=== PATIENT | female | born 1965 | race African-American/Black ===

== ENCOUNTER 2017-03-17 15:11 | Emergency (ER) | payer BC ==
[~2017-03-17] VITALS: Ht 165.1 cm; Wt 78.8 kg
[~2017-03-17 15:11] MED LIST: AMLODIPINE BESYL5 MG PO; FLONASE16 GM NS; GABAPENTIN400 MG PO; OXYCODONE-APAP1 EACH PO; PATADAY2.5 ML OP; PEPCID20 MG PO; PERCOCET 5/31 TABLET PO; PREMARIN0.625 MG PO; ZOLPIDEM TART6.25 MG PO; ZYRTEC10 MG PO
[2017-03-17 15:56] LABS: HEMATOCRIT 38.5 % (36.0-46.0); MCH 26.5 PG (29.0-34.0); MCHC 34.8 G/DL (30.0-36.0); MCV 76.2 FL (83-99); MEAN PLAT.VOLUME 9.8 uM^3 (9.5-12.4); PLATELET COUNT 222 K/uL (156-360); RBC DIS.WIDTH-CV 13.9 % (11.8-14.6); RBC DIS.WIDTH-SD 38.3 % (39-53); RED BLOOD COUNT 5.05 M/uL (3.80-5.20); WHITE BLOOD COUNT 4.9 K/uL (4.1-10.2)
[2017-03-17 16:18] LABS: CHLORIDE 105 mEq/L (99-109); POTASSIUM 4.4 mEq/L (3.7-5.4); SODIUM 139 mEq/L (136-147)
[2017-03-17 16:21] LABS: ANION GAP 9 MEQ/L (2-14)
[2017-03-17 16:22] LABS: GLUCOSE 95 mg/dL (70-99)
[2017-03-17 16:23] LABS: GFR ESTIMATE (CALCULATED) > 59 mL/min/
[2017-03-17 16:24] LABS: UREA NITROGEN (BUN) 11 mg/dL (9-23)
[2017-03-17 16:30] LABS: TROP-I INTERPRETATION NEGATIVE; TROPONIN-I < 0.01 ng/mL (0.0-0.30)
[2017-03-17 16:33] LABS: QUANTITATIVE HCG < 4.0 MIU/ML
[2017-03-17] MEDS ORDERED: ALPRAZOLAM0.5 MG PO (16:43)
[2017-03-17] MEDS ORDERED: AMBIEN10 MG PO (16:44)
[2017-03-17] MEDS ORDERED: ANTIVERT25 MG PO (18:26)
[2017-03-17 18:47] VITALS: BP 125/90
== END 2017-03-17 18:48 | disposition home or self-care (01) ==
LOC: EME 15:11
PROVIDERS: Emergency Medicine
DX: R42 Dizziness and giddiness (principal); M25.551 Pain in right hip; F17.200 Nicotine dependence, unspecified, uncomplicated; Z88.6 Allergy status to analgesic agent
CPT/HCPCS: 70450; 71020; 73502; 80048; 84439; 84443; 84484; 84702; 85027; 93005; 99281; 99285; J7030

== ENCOUNTER 2017-04-09 13:34 | Emergency (ER) | payer BC ==
[~2017-04-09] VITALS: Ht 165.1 cm; Wt 81.4 kg
[~2017-04-09 13:34] MED LIST changes: +ALPRAZOLAM0.5 MG PO; +AMBIEN10 MG PO; +ANTIVERT25 MG PO
[2017-04-09 14:42] LABS: EOSINOPHIL (%) 1.4 % (0-5); EOSINOPHIL COUNT 0.1 K/uL (0-0.3); HEMATOCRIT 37.6 % (36.0-46.0); IMMATURE GRANULOCYTE (%) 0.2 % (0.0-0.7); INSTRUMENT ABS NEUTROPHIL CT 3.1 K/uL; MCH 26.8 PG (29.0-34.0); MCHC 34.8 G/DL (30.0-36.0); MCV 76.9 FL (83-99); MEAN PLAT.VOLUME 10.3 uM^3 (9.5-12.4); MONOCYTE (%) 8.2 % (3-12); MONOCYTE COUNT 0.5 K/uL (0-0.8); NEUTROPHIL (%) 54.1 % (45-76); NEUTROPHIL COUNT 3.1 K/uL (1.8-6.4); PLATELET COUNT 209 K/uL (156-360); RBC DIS.WIDTH-CV 14.2 % (11.8-14.6); RBC DIS.WIDTH-SD 39.2 % (39-53); RED BLOOD COUNT 4.89 M/uL (3.80-5.20); WHITE BLOOD COUNT 5.6 K/uL (4.1-10.2)
[2017-04-09 14:52] LABS: CHLORIDE 106 mEq/L (99-109); POTASSIUM 4.2 mEq/L (3.7-5.4); SODIUM 140 mEq/L (136-147)
[2017-04-09 14:54] LABS: GLUCOSE 90 mg/dL (70-99)
[2017-04-09 14:55] LABS: ANION GAP 7 MEQ/L (2-14)
[2017-04-09 14:57] LABS: GFR ESTIMATE (CALCULATED) > 59 mL/min/
[2017-04-09 14:58] LABS: UREA NITROGEN (BUN) 13 mg/dL (9-23)
[2017-04-09 15:04] LABS: TROP-I INTERPRETATION NEGATIVE; TROPONIN-I < 0.01 ng/mL (0.0-0.30)
[2017-04-09 15:14] LABS: BILIRUBIN NEGATIVE; BLOOD NEGATIVE; COLOR YELLOW ((YELLOW)); GLUCOSE (STRIP) NEGATIVE; KETONES NEGATIVE; LEUKOCYTES NEGATIVE; NITRITE NEGATIVE; PROTEIN (STRIP) NEGATIVE; SPECIFIC GRAVITY 1.013 (1.000-1.030); UROBILINOGEN 0.2 MG/DL (0.2-1.0)
[2017-04-09 15:21] LABS: ADD MIUA? NO; UCUL ADDED? NO
[2017-04-09] MEDS ORDERED: MECLIZINE HCL25 MG PO (15:58)
[2017-04-09] MEDS ORDERED: SUBOXONE 8 MG-1 EAC2 SL (15:58)
[2017-04-09] MEDS ORDERED: METOCLOPRAMIDE10 MG PO (15:59)
[2017-04-09] MEDS ORDERED: CLONIDINE HCL0.1 MG PO (15:59)
[2017-04-09] MEDS ORDERED: PAXIL10 MG PO (15:59)
[2017-04-09] MEDS ORDERED: MEDROL DOSEPAK4 MG PO (16:25)
[2017-04-09 16:46] VITALS: BP 139/95
== END 2017-04-09 17:10 | disposition home or self-care (01) ==
LOC: EME 13:34
PROVIDERS: Emergency Medicine
DX: R55 Syncope and collapse (principal); R42 Dizziness and giddiness; F17.200 Nicotine dependence, unspecified, uncomplicated
CPT/HCPCS: 70450; 80048; 81003; 84484; 85025; 93005; 99281; 99285; J7040

== ENCOUNTER 2017-04-17 14:01 | Observation (INO) | payer BC ==
[~2017-04-17] VITALS: Ht 165.1 cm; Wt 78.0 kg
[~2017-04-17 14:01] MED LIST changes: +CLONIDINE HCL0.1 MG PO; +MECLIZINE HCL25 MG PO; +MEDROL DOSEPAK4 MG PO; +METOCLOPRAMIDE10 MG PO; +PAXIL10 MG PO; +SUBOXONE 8 MG-1 EAC2 SL
[2017-04-17 15:18] LABS: EOSINOPHIL (%) 3.3 % (0-5); EOSINOPHIL COUNT 0.2 K/uL (0-0.3); HEMATOCRIT 36.3 % (36.0-46.0); IMMATURE GRANULOCYTE (%) 0.2 % (0.0-0.7); INSTRUMENT ABS NEUTROPHIL CT 2.2 K/uL; LYMPHOCYTE COUNT 2.3 K/uL (1.0-2.8); MCH 26.4 PG (29.0-34.0); MCHC 34.4 G/DL (30.0-36.0); MCV 76.7 FL (83-99); MONOCYTE (%) 8.1 % (3-12); MONOCYTE COUNT 0.4 K/uL (0-0.8); NEUTROPHIL (%) 43.2 % (45-76); NEUTROPHIL COUNT 2.2 K/uL (1.8-6.4); PLATELET COUNT 193 K/uL (156-360); RBC DIS.WIDTH-CV 14.3 % (11.8-14.6); RBC DIS.WIDTH-SD 39.5 % (39-53); RED BLOOD COUNT 4.73 M/uL (3.80-5.20); WHITE BLOOD COUNT 5.2 K/uL (4.1-10.2)
[2017-04-17 15:36] LABS: CHLORIDE 105 mEq/L (99-109); POTASSIUM 3.9 mEq/L (3.7-5.4); SODIUM 138 mEq/L (136-147)
[2017-04-17 15:38] LABS: GLUCOSE 85 mg/dL (70-99)
[2017-04-17 15:40] LABS: ANION GAP 5 MEQ/L (2-14); TOTAL BILIRUBIN 0.3 mg/dL (0.0-1.0)
[2017-04-17 15:42] LABS: ALKALINE PHOSPHATASE 64 IU/L (3-129); GFR ESTIMATE (CALCULATED) > 59 mL/min/; TROP-I INTERPRETATION NEGATIVE; TROPONIN-I < 0.01 ng/mL (0.0-0.30)
[2017-04-17 15:43] LABS: UREA NITROGEN (BUN) 12 mg/dL (9-23)
[2017-04-17 16:09] LABS: ADD MIUA? NO; BILIRUBIN NEGATIVE; BLOOD NEGATIVE; COLOR YELLOW ((YELLOW)); GLUCOSE (STRIP) NEGATIVE; KETONES NEGATIVE; LEUKOCYTES NEGATIVE; NITRITE NEGATIVE; PROTEIN (STRIP) NEGATIVE; SPECIFIC GRAVITY 1.009 (1.000-1.030); UCUL ADDED? NO; UROBILINOGEN 0.2 MG/DL (0.2-1.0)
[2017-04-17 16:24] LABS: AMPHETAMINE NEGATIVE (500 ng/mL); BARBITURATES NEGATIVE (200 ng/mL); BENZODIAZEPINES PRESUMPTIVE POSITIVE (150 ng/mL); COCAINE NEGATIVE (150 ng/mL); METHADONE NEGATIVE (200 ng/mL); METHAMPHETAMINE NEGATIVE (500 ng/mL); OPIATES (MORPHINE) NEGATIVE (100 ng/mL); OXYCODONE NEGATIVE (100 ng/mL); PHENCYCLIDINE NEGATIVE (25 ng/mL); PROPOXYPHENE NEGATIVE (300 ng/mL); THC CANNABINOIDS NEGATIVE (50 ng/mL); TRICYCLIC ANTIDEPRESSANTS NEGATIVE (300 ng/mL)
[2017-04-17 16:25] LABS: ADD MEDTOX COMMENT Y; INTERNAL CONTROLS VALID? YES
[2017-04-17] MEDS ORDERED: ALPRAZOLAM1 MG PO (16:27)
[2017-04-17] MEDS ORDERED: AMBIEN10 MG PO (16:27)
[2017-04-17] MEDS ORDERED: MEDROL DOSEPAK4 MG PO (16:27)
[2017-04-17] MEDS ORDERED: SUBOXONE 8 MG-1 EAC2 SL ×2 (16:28)
[2017-04-17] MEDS ORDERED: METOCLOPRAMIDE10 MG PO (16:29)
[2017-04-17] MEDS ORDERED: CLONIDINE HCL0.1 MG PO (16:29)
[2017-04-17] MEDS ORDERED: PREMARIN VAGI42.5 GM TP (16:29)
[2017-04-17] MEDS ORDERED: PAROXETINE HCL10 MG PO (16:29)
[2017-04-17 16:32] LABS: D-DIMER ELISA 0.44 mg/L FEU (< 0.57)
[2017-04-17] MEDS ORDERED: ALPRAZOLAM0.5 MG PO (16:46)
[2017-04-17 16:54] LABS: BENZODIAZEPINES, URINE SCREEN POSITIVE (200 ng/mL)
[2017-04-17 18:17] VITALS: BP 130/85
[2017-04-17 20:00] VITALS: BP 125/81; BP 142/89; BP 144/92
[2017-04-18] VITALS (9 sets, daily range): BP systolic 113–139; BP diastolic 67–91
[2017-04-18 06:13] LABS: EOSINOPHIL (%) 3.5 % (0-5); EOSINOPHIL COUNT 0.2 K/uL (0-0.3); HEMATOCRIT 33.2 % (36.0-46.0); IMMATURE GRANULOCYTE (%) 0.4 % (0.0-0.7); INSTRUMENT ABS NEUTROPHIL CT 1.2 K/uL; MCH 26.4 PG (29.0-34.0); MCV 77.6 FL (83-99); MEAN PLAT.VOLUME 10.5 uM^3 (9.5-12.4); MONOCYTE (%) 8.1 % (3-12); MONOCYTE COUNT 0.4 K/uL (0-0.8); NEUTROPHIL (%) 25.2 % (45-76); NEUTROPHIL COUNT 1.2 K/uL (1.8-6.4); PLATELET COUNT 185 K/uL (156-360); RBC DIS.WIDTH-CV 14.5 % (11.8-14.6); RBC DIS.WIDTH-SD 40.6 % (39-53); RED BLOOD COUNT 4.28 M/uL (3.80-5.20); WHITE BLOOD COUNT 4.8 K/uL (4.1-10.2)
[2017-04-18 06:37] LABS: ANION GAP 5 MEQ/L (2-14); CHLORIDE 107 MEQ/L (99-109); GFR ESTIMATE (CALCULATED) > 59 mL/min/; GLUCOSE 89 mg/dL (70-99); POTASSIUM 4.1 MEQ/L (3.7-5.4); SAMPLE HEMOLYSIS CHECK 0; SAMPLE ICTERIC CHECK 0; SAMPLE LIPEMIA CHECK 0; SODIUM 139 MEQ/L (136-147); UREA NITROGEN (BUN) 15 mg/dL (9-23)
[2017-04-19] VITALS (7 sets, daily range): BP systolic 124–144; BP diastolic 78–98
[2017-04-19 06:39] LABS: EOSINOPHIL (%) 1.7 % (0-5); EOSINOPHIL COUNT 0.1 K/uL (0-0.3); HEMATOCRIT 33.8 % (36.0-46.0); IMMATURE GRANULOCYTE (%) 0.4 % (0.0-0.7); INSTRUMENT ABS NEUTROPHIL CT 2.2 K/uL; LYMPHOCYTE COUNT 2.3 K/uL (1.0-2.8); MCH 27.2 PG (29.0-34.0); MCHC 35.2 G/DL (30.0-36.0); MCV 77.2 FL (83-99); MEAN PLAT.VOLUME 10.2 uM^3 (9.5-12.4); MONOCYTE COUNT 0.5 K/uL (0-0.8); NEUTROPHIL (%) 42.9 % (45-76); NEUTROPHIL COUNT 2.2 K/uL (1.8-6.4); PLATELET COUNT 190 K/uL (156-360); RBC DIS.WIDTH-CV 14.4 % (11.8-14.6); RBC DIS.WIDTH-SD 39.8 % (39-53); RED BLOOD COUNT 4.38 M/uL (3.80-5.20); WHITE BLOOD COUNT 5.2 K/uL (4.1-10.2)
[2017-04-19 06:58] LABS: ANION GAP 7 MEQ/L (2-14); CHLORIDE 103 MEQ/L (99-109); GFR ESTIMATE (CALCULATED) > 59 mL/min/; GLUCOSE 93 mg/dL (70-99); POTASSIUM 3.8 MEQ/L (3.7-5.4); SAMPLE HEMOLYSIS CHECK 0; SAMPLE ICTERIC CHECK 0; SAMPLE LIPEMIA CHECK 0; SODIUM 138 MEQ/L (136-147); UREA NITROGEN (BUN) 8 mg/dL (9-23)
== END 2017-04-19 15:00 | disposition home or self-care (01) ==
LOC: EME 14:01 → EDOF 17:32 → 5WEST 18:11
PROVIDERS: Emergency Medicine; Family Medicine
DX: R55 Syncope and collapse (principal); F41.9 Anxiety disorder, unspecified; I10 Essential (primary) hypertension; G89.29 Other chronic pain; G47.00 Insomnia, unspecified; I48.91 Unspecified atrial fibrillation; F32.9 Major depressive disorder, single episode, unspecified
CPT/HCPCS: 71020; 80048; 80053; 81003; 82140; 84484; 84999; 85025; 85379; 93005; G0378; J1650; J7030

== ENCOUNTER 2017-05-20 23:53 | Emergency (ER) | payer BC ==
[~2017-05-20] VITALS: Ht 165.1 cm; Wt 83.6 kg
[~2017-05-20 23:53] MED LIST changes: +ALPRAZOLAM1 MG PO; +PAROXETINE HCL10 MG PO; +PREMARIN VAGI42.5 GM TP
[2017-05-21 01:01] LABS: ADD MIUA? YES; BILIRUBIN NEGATIVE; BLOOD NEGATIVE; COLOR YELLOW ((YELLOW)); GLUCOSE (STRIP) NEGATIVE; KETONES NEGATIVE; LEUKOCYTES TRACE; NITRITE NEGATIVE; PROTEIN (STRIP) NEGATIVE; SPECIFIC GRAVITY 1.012 (1.000-1.030); UROBILINOGEN 0.2 MG/DL (0.2-1.0)
[2017-05-21 01:09] LABS: AMPHETAMINE NEGATIVE (500 ng/mL); BARBITURATES NEGATIVE (200 ng/mL); BENZODIAZEPINES PRESUMPTIVE POSITIVE (150 ng/mL); COCAINE NEGATIVE (150 ng/mL); METHADONE NEGATIVE (200 ng/mL); METHAMPHETAMINE NEGATIVE (500 ng/mL); OPIATES (MORPHINE) NEGATIVE (100 ng/mL); OXYCODONE NEGATIVE (100 ng/mL); PHENCYCLIDINE NEGATIVE (25 ng/mL); PROPOXYPHENE NEGATIVE (300 ng/mL); THC CANNABINOIDS NEGATIVE (50 ng/mL); TRICYCLIC ANTIDEPRESSANTS NEGATIVE (300 ng/mL)
[2017-05-21 01:10] LABS: ADD MEDTOX COMMENT Y; BACTERIA NONE SEEN /HPF; EPITHELIAL CELLS 1+ /HPF; HYALINE CASTS 0-5 /LPF; INTERNAL CONTROLS VALID? YES; MUCUS 2+ /LPF; RED BLOOD CELLS 0-5 /HPF (0-5); UCUL ADDED? NO; WHITE BLOOD CELLS 0-5 /HPF (0-5)
[2017-05-21 01:22] LABS: MCH 26.3 PG (29.0-34.0); MCHC 34.4 G/DL (30.0-36.0); MCV 76.4 FL (83-99); MEAN PLAT.VOLUME 10.4 uM^3 (9.5-12.4); PLATELET COUNT 202 K/uL (156-360); RBC DIS.WIDTH-CV 13.7 % (11.8-14.6); RED BLOOD COUNT 4.71 M/uL (3.80-5.20); WHITE BLOOD COUNT 4.9 K/uL (4.1-10.2)
[2017-05-21 01:34] LABS: CHLORIDE 101 mEq/L (99-109); SODIUM 137 mEq/L (136-147)
[2017-05-21 01:37] LABS: ANION GAP 8 MEQ/L (2-14); GLUCOSE 95 mg/dL (70-99)
[2017-05-21 01:38] LABS: TOTAL BILIRUBIN 0.2 mg/dL (0.0-1.0)
[2017-05-21 01:39] LABS: SERUM ETHYL ALCOHOL < 10 mg/dL
[2017-05-21 01:40] LABS: ALKALINE PHOSPHATASE 68 IU/L (3-129); GFR ESTIMATE (CALCULATED) > 59 mL/min/
[2017-05-21 01:41] LABS: UREA NITROGEN (BUN) 12 mg/dL (9-23)
[2017-05-21 01:43] LABS: LIPASE 33 U/L (1.0-51.0)
[2017-05-21 01:44] LABS: CREATINE KINASE 64 IU/L (1-294); TOTAL CK 64 IU/L (1-294)
[2017-05-21 01:51] LABS: CK-MB < 0.4 ng/mL (0.0-4.9)
[2017-05-21 02:09] LABS: BENZODIAZEPINES, URINE SCREEN POSITIVE (200 ng/mL)
[2017-05-21 03:13] VITALS: BP 127/90
== END 2017-05-21 04:18 | disposition home or self-care (01) ==
LOC: EME 23:53
PROVIDERS: Emergency Medicine
DX: G40.909 Epilepsy, unspecified, not intractable, without status epilepticus (principal); R51 Headache; R41.3 Other amnesia; M79.89 Other specified soft tissue disorders; I10 Essential (primary) hypertension; F17.200 Nicotine dependence, unspecified, uncomplicated
CPT/HCPCS: 80053; 81003; 82550; 82553; 83690; 84999; 85027; 99281; 99285; G0480; J0780; J1200; J7030

== ENCOUNTER 2017-12-17 14:30 | Inpatient (IN) | payer OTHER ==
[~2017-12-17] VITALS: Ht 165.1 cm; Wt 92.2 kg
[~2017-12-17 14:30] MED LIST changes: -PAROXETINE HCL10 MG PO; +PAXIL40 MG PO; +SUBOXONE 12 MG1 EACH SL
[2017-12-17 15:00] LABS: HEMATOCRIT 37.8 % (36.0-46.0); HEMOGLOBIN 13.1 G/DL (11.9-15.5); MCH 27.4 PG (29.0-34.0); MCHC 34.7 G/DL (30.0-36.0); MCV 79.1 FL (83-99); PLATELET COUNT 212 K/uL (156-360); RBC DIS.WIDTH-SD 40.5 % (39-53); RED BLOOD COUNT 4.78 M/uL (3.80-5.20); WHITE BLOOD COUNT 7.7 K/uL (4.1-10.2)
[2017-12-17 15:10] LABS: ALBUMIN 4.2 g/dL (3.2-4.8); CHLORIDE 103 mEq/L (99-109); POTASSIUM 3.6 mEq/L (3.7-5.4); SODIUM 141 mEq/L (136-147)
[2017-12-17 15:13] LABS: GLUCOSE 97 mg/dL (70-99); TOTAL PROTEIN 7.5 g/dL (6.4-8.3)
[2017-12-17 15:15] LABS: TOTAL BILIRUBIN 0.3 mg/dL (0.0-1.0)
[2017-12-17 15:16] LABS: ALKALINE PHOSPHATASE 91 IU/L (3-129); CREATININE 1.2 mg/dL (0.6-1.3); GFR ESTIMATE (CALCULATED) > 59 mL/min/; SERUM ETHYL ALCOHOL < 10 mg/dL
[2017-12-17 15:18] LABS: AST (GOT) 21 IU/L (2-34); UREA NITROGEN (BUN) 8 mg/dL (9-23)
[2017-12-17 15:19] LABS: ALT (GPT) 17 IU/L (3-49)
[2017-12-17 17:27] LABS: APPEARANCE CLEAR ((CLEAR)); BILIRUBIN NEGATIVE; BLOOD NEGATIVE; COLOR STRAW ((YELLOW)); GLUCOSE (STRIP) NEGATIVE; KETONES NEGATIVE; LEUKOCYTES NEGATIVE; NITRITE NEGATIVE; PROTEIN (STRIP) NEGATIVE; SPECIFIC GRAVITY 1.008 (1.000-1.030); UROBILINOGEN 0.2 MG/DL (0.2-1.0)
[2017-12-17 17:35] LABS: BASE EXCESS 2.5 mEq/L (-3 to +3); BICARBONATE 31.2 mEq/L (22-26); CARBOXY HGB 5.6 % (0-5); PCO2 68 mm Hg (35-45); PO2 71 mm Hg (80-100)
[2017-12-17 17:36] LABS: COMMENTS - BLOOD GASES A+C+; DEVICE NC; O2 FLOW 2.5 L/MIN; SITE LR; pH 7.27 (7.35-7.45)
[2017-12-17 17:48] LABS: AMPHETAMINE NEGATIVE (500 ng/mL); BARBITURATES NEGATIVE (200 ng/mL); BENZODIAZEPINES PRESUMPTIVE POSITIVE (150 ng/mL); BUPRENORPHINE PRESUMPTIVE POSITIVE (10 ng/mL); COCAINE NEGATIVE (150 ng/mL); METHADONE NEGATIVE (200 ng/mL); METHAMPHETAMINE NEGATIVE (500 ng/mL); OPIATES (MORPHINE) NEGATIVE (100 ng/mL); OXYCODONE NEGATIVE (100 ng/mL); PHENCYCLIDINE NEGATIVE (25 ng/mL); PROPOXYPHENE NEGATIVE (300 ng/mL); THC CANNABINOIDS NEGATIVE (50 ng/mL); TRICYCLIC ANTIDEPRESSANTS NEGATIVE (300 ng/mL)
[2017-12-17 18:17] LABS: BENZODIAZEPINES, URINE SCREEN POSITIVE (200 ng/mL)
[2017-12-17 19:44] LABS: BASE EXCESS 3.7 mEq/L (-3 to +3); BICARBONATE 31.1 mEq/L (22-26); COMMENTS - BLOOD GASES C+A+; DEVICE NC; O2 FLOW 2.5 L/MIN; PCO2 59 mm Hg (35-45); PO2 65 mm Hg (80-100); SITE LR; TOTAL RESP RATE 15 resp/min; pH 7.33 (7.35-7.45)
[2017-12-17] MEDS ORDERED: KEPPRA750 MG PO (20:43)
[2017-12-17] MEDS ORDERED: VALIUM5 MG PO (20:44)
[2017-12-17] MEDS ORDERED: NEURONTIN300 MG PO (20:45)
[2017-12-17] MEDS ORDERED: BENADRYL25 MG PO (20:45)
[2017-12-17 23:04] VITALS: BP 170/90
[2017-12-18] VITALS (7 sets, daily range): BP systolic 134–166; BP diastolic 73–84
[2017-12-18 06:49] LABS: HEMATOCRIT 35.8 % (36.0-46.0); HEMOGLOBIN 12.3 G/DL (11.9-15.5); MCH 27.2 PG (29.0-34.0); MCHC 34.4 G/DL (30.0-36.0); PLATELET COUNT 203 K/uL (156-360); RBC DIS.WIDTH-CV 14.2 % (11.8-14.6); RBC DIS.WIDTH-SD 40.7 % (39-53); RED BLOOD COUNT 4.53 M/uL (3.80-5.20); WHITE BLOOD COUNT 8.8 K/uL (4.1-10.2)
[2017-12-18 07:15] LABS: CHLORIDE 106 MEQ/L (99-109); GFR ESTIMATE (CALCULATED) > 59 mL/min/; GLUCOSE 123 mg/dL (70-99); SODIUM 143 MEQ/L (136-147); UREA NITROGEN (BUN) 8 mg/dL (9-23)
[2017-12-18 07:26] LABS: CREATININE 0.7 MG/DL (0.6-1.3)
[2017-12-19 03:56] VITALS: BP 138/84
[2017-12-19 06:07] LABS: BASOPHIL (%) 0.2 % (0-1); EOSINOPHIL (%) 2.2 % (0-5); EOSINOPHIL COUNT 0.1 K/uL (0-0.3); HEMATOCRIT 31.8 % (36.0-46.0); HEMOGLOBIN 10.9 G/DL (11.9-15.5); IMMATURE GRANULOCYTE (%) 0.3 % (0.0-0.7); LYMPHOCYTE (%) 31.2 % (15-42); MCHC 34.3 G/DL (30.0-36.0); MCV 78.7 FL (83-99); MONOCYTE (%) 8.4 % (3-12); MONOCYTE COUNT 0.6 K/uL (0-0.8); NEUTROPHIL (%) 57.7 % (45-76); NEUTROPHIL COUNT 3.8 K/uL (1.8-6.4); PLATELET COUNT 179 K/uL (156-360); RBC DIS.WIDTH-CV 13.9 % (11.8-14.6); RED BLOOD COUNT 4.04 M/uL (3.80-5.20); WHITE BLOOD COUNT 6.5 K/uL (4.1-10.2)
[2017-12-19 06:39] LABS: CHLORIDE 105 MEQ/L (99-109); CREATININE 0.6 MG/DL (0.6-1.3); GFR ESTIMATE (CALCULATED) > 59 mL/min/; GLUCOSE 100 mg/dL (70-99); POTASSIUM 3.9 MEQ/L (3.7-5.4); SODIUM 140 MEQ/L (136-147); UREA NITROGEN (BUN) 9 mg/dL (9-23)
[2017-12-19 07:10] VITALS: BP 141/83
[2017-12-19 11:30] VITALS: BP 157/101
[2017-12-19 15:52] VITALS: BP 142/82
[2017-12-19 20:05] VITALS: BP 137/84
[2017-12-19 23:48] VITALS: BP 137/84; BP 140/85
[2017-12-20 04:15] VITALS: BP 129/64
[2017-12-20 06:18] LABS: BASOPHIL (%) 0.2 % (0-1); EOSINOPHIL (%) 1.2 % (0-5); EOSINOPHIL COUNT 0.1 K/uL (0-0.3); HEMATOCRIT 30.4 % (36.0-46.0); HEMOGLOBIN 10.7 G/DL (11.9-15.5); IMMATURE GRANULOCYTE (%) 0.2 % (0.0-0.7); LYMPHOCYTE (%) 24.3 % (15-42); MCH 27.2 PG (29.0-34.0); MCHC 35.2 G/DL (30.0-36.0); MCV 77.2 FL (83-99); MONOCYTE (%) 9.4 % (3-12); MONOCYTE COUNT 0.8 K/uL (0-0.8); NEUTROPHIL (%) 64.7 % (45-76); NEUTROPHIL COUNT 5.2 K/uL (1.8-6.4); PLATELET COUNT 167 K/uL (156-360); RBC DIS.WIDTH-CV 13.6 % (11.8-14.6); RBC DIS.WIDTH-SD 38.5 % (39-53); RED BLOOD COUNT 3.94 M/uL (3.80-5.20)
[2017-12-20 06:42] LABS: CHLORIDE 100 MEQ/L (99-109); CREATININE 0.6 MG/DL (0.6-1.3); GFR ESTIMATE (CALCULATED) > 59 mL/min/; GLUCOSE 99 mg/dL (70-99); POTASSIUM 3.4 MEQ/L (3.7-5.4); SODIUM 138 MEQ/L (136-147); UREA NITROGEN (BUN) 11 mg/dL (9-23)
[2017-12-20 07:15] VITALS: BP 147/81
[2017-12-20 11:09] VITALS: BP 142/83
[2017-12-20 16:35] VITALS: BP 148/84
[2017-12-20 18:18] LABS: BICARBONATE 29.1 mEq/L (22-26); CARBOXY HGB 2.5 % (0-5); METHEMOGLOBIN 1.7 % (0-1.5); PO2 53 mm Hg (80-100)
[2017-12-20 18:19] LABS: COMMENTS - BLOOD GASES A+C+; DEVICE NC; O2 FLOW 5 L/MIN; PCO2 40 mm Hg (35-45); SITE RR; pH 7.47 (7.35-7.45)
[2017-12-20 19:56] VITALS: BP 135/85
[2017-12-21] VITALS (14 sets, daily range): BP systolic 128–159; BP diastolic 67–105
[2017-12-21 06:35] LABS: BASOPHIL (%) 0.1 % (0-1); EOSINOPHIL (%) 0.3 % (0-5); HEMATOCRIT 30.5 % (36.0-46.0); HEMOGLOBIN 10.7 G/DL (11.9-15.5); IMMATURE GRANULOCYTE (%) 0.4 % (0.0-0.7); LYMPHOCYTE (%) 10.3 % (15-42); LYMPHOCYTE COUNT 1.3 K/uL (1.0-2.8); MCH 26.8 PG (29.0-34.0); MCHC 35.1 G/DL (30.0-36.0); MCV 76.4 FL (83-99); MONOCYTE (%) 6.7 % (3-12); MONOCYTE COUNT 0.8 K/uL (0-0.8); NEUTROPHIL (%) 82.2 % (45-76); NEUTROPHIL COUNT 10.4 K/uL (1.8-6.4); PLATELET COUNT 178 K/uL (156-360); RBC DIS.WIDTH-CV 13.6 % (11.8-14.6); RED BLOOD COUNT 3.99 M/uL (3.80-5.20); WHITE BLOOD COUNT 12.6 K/uL (4.1-10.2)
[2017-12-21 06:51] LABS: CHLORIDE 101 MEQ/L (99-109); CREATININE 0.6 MG/DL (0.6-1.3); GFR ESTIMATE (CALCULATED) > 59 mL/min/; GLUCOSE 108 mg/dL (70-99); POTASSIUM 3.7 MEQ/L (3.7-5.4); SODIUM 137 MEQ/L (136-147); UREA NITROGEN (BUN) 10 mg/dL (9-23)
[2017-12-21 14:14] LABS: BASE EXCESS 7.6 mEq/L (-3 to +3); BICARBONATE 32.7 mEq/L (22-26); CARBOXY HGB 2.4 % (0-5); COMMENTS - BLOOD GASES A+C+; DEVICE HHFNC; FI02 100 %; MECHANICAL RATE 16 resp/min; METHEMOGLOBIN 1.6 % (0-1.5); O2 FLOW 40 L/MIN; PCO2 47 mm Hg (35-45); PO2 47 mm Hg (80-100); SITE RR; pH 7.45 (7.35-7.45)
[2017-12-21 16:55] LABS: BASE EXCESS 5.5 mEq/L (-3 to +3); BICARBONATE 31.1 mEq/L (22-26); CARBOXY HGB 1.9 % (0-5); COMMENTS - BLOOD GASES +C; CONTINUOUS POS AIRWAY PRESSURE 8 cm H2O; DEVICE NIV; FI02 100 %; METHEMOGLOBIN 1.6 % (0-1.5); PCO2 49 mm Hg (35-45); PO2 173 mm Hg (80-100); PRES. SUPPORT 10 CM/H2O; SITE RR +A; TOTAL RESP RATE 30 resp/min; pH 7.41 (7.35-7.45)
[2017-12-22] VITALS (21 sets, daily range): BP systolic 116–140; BP diastolic 70–89
[2017-12-22 06:05] LABS: CHLORIDE 101 MEQ/L (99-109); CREATININE 0.5 MG/DL (0.6-1.3); GFR ESTIMATE (CALCULATED) > 59 mL/min/; GLUCOSE 157 mg/dL (70-99); POTASSIUM 3.8 MEQ/L (3.7-5.4); SODIUM 139 MEQ/L (136-147); UREA NITROGEN (BUN) 17 mg/dL (9-23)
[2017-12-22 06:06] LABS: BASOPHIL (%) 0.1 % (0-1); EOSINOPHIL (%) 0 % (0-5); HEMATOCRIT 30.8 % (36.0-46.0); HEMOGLOBIN 10.5 G/DL (11.9-15.5); IMMATURE GRANULOCYTE (%) 0.5 % (0.0-0.7); LYMPHOCYTE (%) 5.2 % (15-42); LYMPHOCYTE COUNT 0.8 K/uL (1.0-2.8); MCH 26.4 PG (29.0-34.0); MCHC 34.1 G/DL (30.0-36.0); MCV 77.4 FL (83-99); MONOCYTE (%) 1.9 % (3-12); MONOCYTE COUNT 0.3 K/uL (0-0.8); NEUTROPHIL (%) 92.3 % (45-76); NEUTROPHIL COUNT 14.1 K/uL (1.8-6.4); PLATELET COUNT 195 K/uL (156-360); RBC DIS.WIDTH-CV 13.7 % (11.8-14.6); RBC DIS.WIDTH-SD 38.5 % (39-53); RED BLOOD COUNT 3.98 M/uL (3.80-5.20); WHITE BLOOD COUNT 15.3 K/uL (4.1-10.2)
[2017-12-23] VITALS (22 sets, daily range): BP systolic 125–165; BP diastolic 71–98
[2017-12-23 13:13] LABS: BASOPHIL (%) 0.1 % (0-1); EOSINOPHIL (%) 0 % (0-5); HEMATOCRIT 32.1 % (36.0-46.0); HEMOGLOBIN 11.2 G/DL (11.9-15.5); IMMATURE GRANULOCYTE (%) 0.6 % (0.0-0.7); LYMPHOCYTE (%) 4.2 % (15-42); LYMPHOCYTE COUNT 0.7 K/uL (1.0-2.8); MCH 27.1 PG (29.0-34.0); MCHC 34.9 G/DL (30.0-36.0); MCV 77.5 FL (83-99); MONOCYTE (%) 4.1 % (3-12); MONOCYTE COUNT 0.7 K/uL (0-0.8); NEUTROPHIL COUNT 15.5 K/uL (1.8-6.4); PLATELET COUNT 265 K/uL (156-360); RBC DIS.WIDTH-CV 13.9 % (11.8-14.6); RBC DIS.WIDTH-SD 39.3 % (39-53); RED BLOOD COUNT 4.14 M/uL (3.80-5.20); WHITE BLOOD COUNT 17.1 K/uL (4.1-10.2)
[2017-12-23 13:36] LABS: CHLORIDE 101 MEQ/L (99-109); CREATININE 0.6 MG/DL (0.6-1.3); GFR ESTIMATE (CALCULATED) > 59 mL/min/; GLUCOSE 133 mg/dL (70-99); MAGNESIUM 2.2 mg/dl (1.3-2.7); PHOSPHORUS 1.8 mg/dL (2.5-4.9); POTASSIUM 4.2 MEQ/L (3.7-5.4); SODIUM 143 MEQ/L (136-147); UREA NITROGEN (BUN) 19 mg/dL (9-23)
[2017-12-23 22:08] LABS: CARBOXY HGB 1.9 % (0-5); pH 7.43 (7.35-7.45)
[2017-12-23 22:09] LABS: BASE EXCESS 4.3 mEq/L (-3 to +3); BICARBONATE 29.2 mEq/L (22-26); COMMENTS - BLOOD GASES A+C+; DEVICE NCH; METHEMOGLOBIN 1.7 % (0-1.5); O2 FLOW 15 L/MIN; PCO2 44 mm Hg (35-45); PO2 54 mm Hg (80-100); SITE RR
[2017-12-24] VITALS (23 sets, daily range): BP systolic 129–172; BP diastolic 78–109
[2017-12-24 12:19] LABS: BASOPHIL (%) 0.2 % (0-1); EOSINOPHIL (%) 0.1 % (0-5); HEMATOCRIT 32.1 % (36.0-46.0); HEMOGLOBIN 11.4 G/DL (11.9-15.5); IMMATURE GRANULOCYTE (%) 1.3 % (0.0-0.7); LYMPHOCYTE (%) 4.3 % (15-42); LYMPHOCYTE COUNT 0.7 K/uL (1.0-2.8); MCH 27.5 PG (29.0-34.0); MCHC 35.5 G/DL (30.0-36.0); MCV 77.3 FL (83-99); MONOCYTE (%) 4.9 % (3-12); MONOCYTE COUNT 0.8 K/uL (0-0.8); NEUTROPHIL (%) 89.2 % (45-76); NEUTROPHIL COUNT 14.2 K/uL (1.8-6.4); NRBC (%) 0.1 /100 WBC (0-0); RBC DIS.WIDTH-CV 13.9 % (11.8-14.6); RBC DIS.WIDTH-SD 38.8 % (39-53); RED BLOOD COUNT 4.15 M/uL (3.80-5.20); WHITE BLOOD COUNT 15.9 K/uL (4.1-10.2)
[2017-12-24 12:42] LABS: CREATININE 0.6 MG/DL (0.6-1.3); GLUCOSE 131 mg/dL (70-99); UREA NITROGEN (BUN) 20 mg/dL (9-23)
[2017-12-24 12:43] LABS: CHLORIDE 105 MEQ/L (99-109); GFR ESTIMATE (CALCULATED) > 59 mL/min/; MAGNESIUM 2.2 mg/dl (1.3-2.7); POTASSIUM 4.2 MEQ/L (3.7-5.4); SODIUM 140 MEQ/L (136-147)
[2017-12-24 12:46] LABS: PLAT.SUFFICIENCY ADEQUATE; PLATELET COUNT 274 K/uL (156-360)
[2017-12-25] VITALS (19 sets, daily range): BP systolic 144–171; BP diastolic 84–107
[2017-12-25 05:44] LABS: BASOPHIL (%) 0.1 % (0-1); EOSINOPHIL (%) 0 % (0-5); HEMATOCRIT 31.1 % (36.0-46.0); HEMOGLOBIN 10.9 G/DL (11.9-15.5); IMMATURE GRANULOCYTE (%) 1.1 % (0.0-0.7); LYMPHOCYTE (%) 7.6 % (15-42); LYMPHOCYTE COUNT 0.9 K/uL (1.0-2.8); MCH 26.8 PG (29.0-34.0); MCV 76.4 FL (83-99); MONOCYTE (%) 4.7 % (3-12); MONOCYTE COUNT 0.6 K/uL (0-0.8); NEUTROPHIL (%) 86.5 % (45-76); NEUTROPHIL COUNT 10.6 K/uL (1.8-6.4); PLATELET COUNT 296 K/uL (156-360); RBC DIS.WIDTH-CV 13.6 % (11.8-14.6); RBC DIS.WIDTH-SD 37.8 % (39-53); RED BLOOD COUNT 4.07 M/uL (3.80-5.20); WHITE BLOOD COUNT 12.2 K/uL (4.1-10.2)
[2017-12-25 06:05] LABS: CHLORIDE 102 MEQ/L (99-109); CREATININE 0.6 MG/DL (0.6-1.3); GFR ESTIMATE (CALCULATED) > 59 mL/min/; GLUCOSE 135 mg/dL (70-99); MAGNESIUM 2.3 mg/dl (1.3-2.7); PHOSPHORUS 3.6 mg/dL (2.5-4.9); POTASSIUM 4.3 MEQ/L (3.7-5.4); SODIUM 139 MEQ/L (136-147); UREA NITROGEN (BUN) 20 mg/dL (9-23)
[2017-12-26] VITALS (7 sets, daily range): BP systolic 126–162; BP diastolic 60–89
[2017-12-27 05:39] LABS: BASOPHIL (%) 0.1 % (0-1); EOSINOPHIL (%) 0.7 % (0-5); EOSINOPHIL COUNT 0.1 K/uL (0-0.3); HEMATOCRIT 30.5 % (36.0-46.0); HEMOGLOBIN 10.6 G/DL (11.9-15.5); IMMATURE GRANULOCYTE (%) 2.3 % (0.0-0.7); LYMPHOCYTE (%) 16.9 % (15-42); LYMPHOCYTE COUNT 1.9 K/uL (1.0-2.8); MCH 26.6 PG (29.0-34.0); MCHC 34.8 G/DL (30.0-36.0); MCV 76.6 FL (83-99); MONOCYTE (%) 7.2 % (3-12); MONOCYTE COUNT 0.8 K/uL (0-0.8); NEUTROPHIL (%) 72.8 % (45-76); NEUTROPHIL COUNT 8.4 K/uL (1.8-6.4); PLATELET COUNT 354 K/uL (156-360); RBC DIS.WIDTH-CV 13.9 % (11.8-14.6); RBC DIS.WIDTH-SD 38.2 % (39-53); RED BLOOD COUNT 3.98 M/uL (3.80-5.20); WHITE BLOOD COUNT 11.5 K/uL (4.1-10.2)
[2017-12-27 06:10] LABS: CHLORIDE 104 MEQ/L (99-109); CREATININE 0.5 MG/DL (0.6-1.3); GFR ESTIMATE (CALCULATED) > 59 mL/min/; GLUCOSE 92 mg/dL (70-99); POTASSIUM 3.6 MEQ/L (3.7-5.4); SODIUM 139 MEQ/L (136-147); UREA NITROGEN (BUN) 21 mg/dL (9-23)
[2017-12-27 07:25] VITALS: BP 154/95
[2017-12-27 12:05] VITALS: BP 128/82
[2017-12-27 16:45] VITALS: BP 135/72
[2017-12-27 20:22] VITALS: BP 132/78
[2017-12-27 23:47] VITALS: BP 143/83
[2017-12-28] VITALS (7 sets, daily range): BP systolic 132–168; BP diastolic 72–94
[2017-12-28 05:31] LABS: BASOPHIL (%) 0.1 % (0-1); EOSINOPHIL (%) 0.6 % (0-5); EOSINOPHIL COUNT 0.1 K/uL (0-0.3); HEMATOCRIT 31.7 % (36.0-46.0); HEMOGLOBIN 10.9 G/DL (11.9-15.5); IMMATURE GRANULOCYTE (%) 2.5 % (0.0-0.7); LYMPHOCYTE (%) 8.2 % (15-42); LYMPHOCYTE COUNT 0.8 K/uL (1.0-2.8); MCH 26.5 PG (29.0-34.0); MCHC 34.4 G/DL (30.0-36.0); MCV 76.9 FL (83-99); MONOCYTE (%) 5.7 % (3-12); MONOCYTE COUNT 0.5 K/uL (0-0.8); NEUTROPHIL (%) 82.9 % (45-76); NEUTROPHIL COUNT 7.9 K/uL (1.8-6.4); PLATELET COUNT 374 K/uL (156-360); RBC DIS.WIDTH-CV 14.2 % (11.8-14.6); RBC DIS.WIDTH-SD 38.9 % (39-53); RED BLOOD COUNT 4.12 M/uL (3.80-5.20); WHITE BLOOD COUNT 9.5 K/uL (4.1-10.2)
[2017-12-28 05:57] LABS: CHLORIDE 102 MEQ/L (99-109); CREATININE 0.6 MG/DL (0.6-1.3); GFR ESTIMATE (CALCULATED) > 59 mL/min/; GLUCOSE 134 mg/dL (70-99); POTASSIUM 4.5 MEQ/L (3.7-5.4); SODIUM 136 MEQ/L (136-147); UREA NITROGEN (BUN) 15 mg/dL (9-23)
[2017-12-29 04:40] VITALS: BP 157/90
[2017-12-29 05:16] LABS: BASOPHIL (%) 0.1 % (0-1); EOSINOPHIL (%) 0.1 % (0-5); HEMATOCRIT 31.4 % (36.0-46.0); HEMOGLOBIN 10.8 G/DL (11.9-15.5); LYMPHOCYTE (%) 10.3 % (15-42); LYMPHOCYTE COUNT 1.2 K/uL (1.0-2.8); MCH 26.4 PG (29.0-34.0); MCHC 34.4 G/DL (30.0-36.0); MCV 76.8 FL (83-99); MONOCYTE (%) 8.2 % (3-12); MONOCYTE COUNT 0.9 K/uL (0-0.8); NEUTROPHIL (%) 78.3 % (45-76); NEUTROPHIL COUNT 8.7 K/uL (1.8-6.4); PLATELET COUNT 374 K/uL (156-360); RBC DIS.WIDTH-CV 14.2 % (11.8-14.6); RBC DIS.WIDTH-SD 38.7 % (39-53); RED BLOOD COUNT 4.09 M/uL (3.80-5.20); WHITE BLOOD COUNT 11.1 K/uL (4.1-10.2)
[2017-12-29 09:41] VITALS: BP 145/84
[2017-12-29 11:22] VITALS: BP 137/78
[2017-12-29] MEDS ORDERED: MUCINEX600 MG PO (13:16)
[2017-12-29] MEDS ORDERED: DOCUSATE SODIU100 MG PO (13:17)
[2017-12-29] MEDS ORDERED: SENNA LAX8.6 MG PO (13:17)
[2017-12-29] MEDS ORDERED: AUGMENTIN875 MG PO (13:21)
[2017-12-29] MEDS ORDERED: VENTOLIN HFA18 GM IH (13:21)
[2017-12-29] MEDS ORDERED: PREDNISONE10 MG PO (13:21)
== END 2017-12-29 15:50 | disposition home or self-care (01) | DRG 177 ==
LOC: EME 14:30 → EDOF 21:14 → 5EAST 21:14 → ENRESERV 21:25 → 5EAST 22:53 → ENRESERV 12-21 11:16 → 4EAST 12-21 13:27 → 4WEST 12-21 14:47 → ENRESERV 12-25 18:13 → 4EAST 12-25 19:29
PROVIDERS: Emergency Medicine; Family Medicine; Internal Medicine Pulmonary Disease; Obstetrics & Gynecology; Specialist
PROC: 5A09357 Assistance with Respiratory Ventilation, Less than 24 Consecutive Hours, Continuous Positive Airway Pressure (ICD-10-PCS; principal; 2017-12-21)
DX: J69.0 Pneumonitis due to inhalation of food and vomit (principal); J96.01 Acute respiratory failure with hypoxia; J44.9 Chronic obstructive pulmonary disease, unspecified; I10 Essential (primary) hypertension; I48.0 Paroxysmal atrial fibrillation; G40.409 Other generalized epilepsy and epileptic syndromes, not intractable, without status epilepticus; R41.82 Altered mental status, unspecified; T50.7X5A Adverse effect of analeptics and opioid receptor antagonists, initial encounter; T42.4X5A Adverse effect of benzodiazepines, initial encounter; J98.11 Atelectasis; F43.22 Adjustment disorder with anxiety; E07.9 Disorder of thyroid, unspecified; G89.29 Other chronic pain; M54.2 Cervicalgia; G47.00 Insomnia, unspecified; R42 Dizziness and giddiness; R73.9 Hyperglycemia, unspecified; R63.5 Abnormal weight gain; Z68.32 Body mass index [BMI] 32.0-32.9, adult; F32.9 Major depressive disorder, single episode, unspecified; F17.200 Nicotine dependence, unspecified, uncomplicated; Z71.6 Tobacco abuse counseling; Z79.891 Long term (current) use of opiate analgesic; Z79.899 Other long term (current) drug therapy; Z90.710 Acquired absence of both cervix and uterus; Z87.19 Personal history of other diseases of the digestive system; Z91.5 Personal history of self-harm; Z88.5 Allergy status to narcotic agent
CPT/HCPCS: 36600; 71045; 71046; 71275; 80048; 80053; 80202; 81003; 82803; 82948; 83605; 83735; 83880; 84100; 84999; 85025; 85027; 87040; 87070; 87086; 87205; 87502; 87641; 93306; 94002; 94003; 94010; 94640; 94640 76; 94667; 94668; 94760; 94799; 97530 GO; 99202; 99281; 99285; G0480; J0360; J0456; J0572; J0696; J1650; J1885; J1940; J1953; J2060; J2310; J2543; J2920; J2930; J3370; J7042; J7050; J7512

== ENCOUNTER 2018-02-25 18:41 | Inpatient (IN) | payer OTHER ==
[~2018-02-25] VITALS: Ht 172.7 cm; Wt 89.5 kg
[~2018-02-25 18:41] MED LIST changes: +AUGMENTIN875 MG PO; +BENADRYL25 MG PO; +DOCUSATE SODIU100 MG PO; +KEPPRA750 MG PO; +MUCINEX600 MG PO; +NEURONTIN300 MG PO; +PREDNISONE10 MG PO; +SENNA LAX8.6 MG PO; +VALIUM5 MG PO; +VENTOLIN HFA18 GM IH
[2018-02-25 20:12] LABS: BASOPHIL (%) 0.3 % (0-1); EOSINOPHIL (%) 2.1 % (0-5); EOSINOPHIL COUNT 0.1 K/uL (0-0.3); HEMATOCRIT 36.1 % (36.0-46.0); HEMOGLOBIN 12.7 G/DL (11.9-15.5); IMMATURE GRANULOCYTE (%) 0.2 % (0.0-0.7); LYMPHOCYTE (%) 46.8 % (15-42); LYMPHOCYTE COUNT 2.8 K/uL (1.0-2.8); MCH 27.1 PG (29.0-34.0); MCHC 35.2 G/DL (30.0-36.0); MONOCYTE (%) 7.4 % (3-12); MONOCYTE COUNT 0.5 K/uL (0-0.8); NEUTROPHIL (%) 43.2 % (45-76); NEUTROPHIL COUNT 2.6 K/uL (1.8-6.4); PLATELET COUNT 265 K/uL (156-360); RBC DIS.WIDTH-CV 14.7 % (11.8-14.6); RBC DIS.WIDTH-SD 40.4 % (39-53); RED BLOOD COUNT 4.69 M/uL (3.80-5.20); WHITE BLOOD COUNT 6.1 K/uL (4.1-10.2)
[2018-02-25 20:31] LABS: ALBUMIN 4.2 g/dL (3.2-4.8); CHLORIDE 103 mEq/L (99-109); POTASSIUM 3.1 mEq/L (3.7-5.4); SODIUM 140 mEq/L (136-147)
[2018-02-25 20:33] LABS: GLUCOSE 93 mg/dL (70-99)
[2018-02-25 20:34] LABS: TOTAL PROTEIN 7.4 g/dL (6.4-8.3)
[2018-02-25 20:35] LABS: TOTAL BILIRUBIN 0.3 mg/dL (0.0-1.0)
[2018-02-25 20:37] LABS: ALKALINE PHOSPHATASE 66 IU/L (3-129); CREATININE 0.8 mg/dL (0.6-1.3); GFR ESTIMATE (CALCULATED) > 59 mL/min/
[2018-02-25 20:38] LABS: UREA NITROGEN (BUN) 9 mg/dL (9-23)
[2018-02-25 20:39] LABS: AST (GOT) 12 IU/L (2-34)
[2018-02-25 20:40] LABS: ALT (GPT) 10 IU/L (3-49); CREATINE KINASE 58 IU/L (1-294); TOTAL CK 58 IU/L (1-294)
[2018-02-25 20:46] LABS: CK-MB 0.4 ng/mL (0.0-4.9); CKMB RELATIVE INDEX 0.7 (0.0-3.9)
[2018-02-26 01:15] VITALS: BP 131/83
[2018-02-26 02:06] LABS: APPEARANCE CLEAR ((CLEAR)); BILIRUBIN NEGATIVE; BLOOD NEGATIVE; COLOR YELLOW ((YELLOW)); GLUCOSE (STRIP) NEGATIVE; KETONES NEGATIVE; LEUKOCYTES NEGATIVE; NITRITE NEGATIVE; PROTEIN (STRIP) NEGATIVE; SPECIFIC GRAVITY 1.016 (1.000-1.030); UCUL ADDED? NO; UROBILINOGEN 0.2 MG/DL (0.2-1.0)
[2018-02-26 04:12] LABS: BENZODIAZEPINES, URINE SCREEN POSITIVE (200 ng/mL)
[2018-02-26 06:09] LABS: BASOPHIL (%) 0.3 % (0-1); EOSINOPHIL (%) 3.4 % (0-5); EOSINOPHIL COUNT 0.2 K/uL (0-0.3); HEMATOCRIT 32.6 % (36.0-46.0); HEMOGLOBIN 11.4 G/DL (11.9-15.5); IMMATURE GRANULOCYTE (%) 0.3 % (0.0-0.7); LYMPHOCYTE (%) 36.7 % (15-42); LYMPHOCYTE COUNT 2.2 K/uL (1.0-2.8); MCH 26.9 PG (29.0-34.0); MCV 76.9 FL (83-99); MONOCYTE (%) 8.4 % (3-12); MONOCYTE COUNT 0.5 K/uL (0-0.8); NEUTROPHIL (%) 50.9 % (45-76); PLATELET COUNT 242 K/uL (156-360); RBC DIS.WIDTH-CV 14.6 % (11.8-14.6); RBC DIS.WIDTH-SD 40.3 % (39-53); RED BLOOD COUNT 4.24 M/uL (3.80-5.20)
[2018-02-26 06:40] LABS: CHLORIDE 105 MEQ/L (99-109); CREATININE 0.6 MG/DL (0.6-1.3); GFR ESTIMATE (CALCULATED) > 59 mL/min/; GLUCOSE 90 mg/dL (70-99); POTASSIUM 3.3 MEQ/L (3.7-5.4); SODIUM 141 MEQ/L (136-147); UREA NITROGEN (BUN) 9 mg/dL (9-23)
[2018-02-26 07:40] VITALS: BP 147/88
== END 2018-02-26 08:40 | disposition left against medical advice (07) | DRG 101 ==
LOC: EME 18:41 → EDOF 23:08 → 5EAST 23:08 → ENRESERV 23:47 → 5EAST 02-26 00:50
PROVIDERS: Emergency Medicine; Family Medicine
DX: R56.9 Unspecified convulsions (principal); E87.6 Hypokalemia; F17.200 Nicotine dependence, unspecified, uncomplicated; W19.XXXA Unspecified fall, initial encounter; Z90.710 Acquired absence of both cervix and uterus
CPT/HCPCS: 70450; 80048; 80053; 80306 90; 81003; 82550; 82553; 85025; 93005; 99281; 99285; J1953; J2060; J2250; J7030; J7050

== ENCOUNTER 2018-05-27 16:14 | Emergency (ER) | payer OTHER ==
[~2018-05-27] VITALS: Ht 170.2 cm; Wt 109.9 kg
[2018-05-27 16:45] LABS: BASOPHIL (%) 0.3 % (0-1); EOSINOPHIL (%) 2.7 % (0-5); EOSINOPHIL COUNT 0.2 K/uL (0-0.3); HEMATOCRIT 35.3 % (36.0-46.0); HEMOGLOBIN 12.5 G/DL (11.9-15.5); IMMATURE GRANULOCYTE (%) 0.6 % (0.0-0.7); LYMPHOCYTE (%) 48.3 % (15-42); LYMPHOCYTE COUNT 3.1 K/uL (1.0-2.8); MCH 26.9 PG (29.0-34.0); MCHC 35.4 G/DL (30.0-36.0); MCV 76.1 FL (83-99); MONOCYTE (%) 6.8 % (3-12); MONOCYTE COUNT 0.4 K/uL (0-0.8); NEUTROPHIL (%) 41.3 % (45-76); NEUTROPHIL COUNT 2.6 K/uL (1.8-6.4); PLATELET COUNT 244 K/uL (156-360); RBC DIS.WIDTH-CV 15.3 % (11.8-14.6); RBC DIS.WIDTH-SD 41.8 % (39-53); RED BLOOD COUNT 4.64 M/uL (3.80-5.20); WHITE BLOOD COUNT 6.3 K/uL (4.1-10.2)
[2018-05-27 16:58] LABS: CHLORIDE 106 mEq/L (99-109); POTASSIUM 3.7 mEq/L (3.7-5.4); SODIUM 142 mEq/L (136-147)
[2018-05-27 16:59] LABS: GLUCOSE 82 mg/dL (70-99)
[2018-05-27 17:03] LABS: CREATININE 0.8 mg/dL (0.6-1.3); GFR ESTIMATE (CALCULATED) > 59 mL/min/
[2018-05-27 17:04] LABS: UREA NITROGEN (BUN) 13 mg/dL (9-23)
[2018-05-27 19:17] VITALS: BP 152/92
== END 2018-05-27 19:23 | disposition home or self-care (01) ==
LOC: EME 16:14
PROVIDERS: Emergency Medicine
DX: G40.909 Epilepsy, unspecified, not intractable, without status epilepticus (principal); F17.200 Nicotine dependence, unspecified, uncomplicated
CPT/HCPCS: 80048; 85025; 93005; 99281; 99284; J2060